=== PATIENT | male | born 1955 | race Caucasian/White ===

== ENCOUNTER 2018-05-07 06:29 | Emergency (ER) | payer BC ==
[2018-05-07] MEDS ORDERED: ONDANSETRON HCL/PF 4 MG/ 2ML VIAL IVP ONE (06:55)
--- NOTE | 2018-05-07 06:58 | ED Physician Documentation ---
Abdominal Pain - HISTORIAN Historian: patient, spouse - HPI Stated Complaint: " N/V LLQ PAIN SINCE 2199" Chief Complaint: Abdominal Pain Onset: hours (8) Duration: constant Timing: still present Context: denies: out of country travel Severity: moderate Quality: pain, sharp, stabbing Associated Symptoms: fever, nausea Exacerbated by: movements Relieved by: nothing - ROS GI/: denies: constipation CVS/RESP: denies: shortness of breath MS/SKIN/LYMPH: denies: swollen glands NEURO/PSYCH: denies: headache - SOCIAL HX Smoking History: non-smoker Alcohol Use: none Drug Use: none - FAMILY HX Family History: none - PAST HX Past History: none Ischemic Bowel Risk Factors: none Other History: diabetes Type 2 Surgeries/Procedures: none - REVIEWED ASSESSMENTS Nursing Assessment Reviewed: Yes Vitals Reviewed: Yes <Cassia Caceres - Last Filed: 05/07/18 06:56> - ROS CONST: recent illness <TANYA GRANADOS - Last Filed: 05/07/18 09:33> - HPI Additonal Information: Patient presents to ED with RLQ pain, fever (101.0) and nausea since 2199 last night. Patient states he had a similar episode last week which resolved without intervention. He rates his pain 7/10, sharp stabbing, radiating to his back. (Cassia Caceres) - PAST HX Home Medications: Ambulatory Orders Medication Instructions Recorded Glipizide 10 mg PO BID 05/07/18 Lisinopril [Prinivil] 10 mg PO DAILY 05/07/18 Metformin HCl [Metformin HCl ER] 1,000 mg PO BID 05/07/18 Allergies/Adverse Reactions: Allergies Allergy/AdvReac Type Severity Reaction Status Date / Time Sulfa (Sulfonamide Allergy Mild Verified 05/07/18 06:38 Antibiotics) - VITAL SIGNS Vital Signs: Vital Signs Temp Pulse Resp BP Pulse Ox 98.1 F 63 16 156/74 97 05/07/18 08:28 05/07/18 08:28 05/07/18 08:28 05/07/18 08:28 05/07/18 08:28 Progress <TANYA GRANADOS - Last Filed: 05/07/18 09:33> - Progress Progress: 0715 Patient re-examined. Right flank pain radiating "through to right lower abdomen" per patient. Right CVA tenderness. UA with 1+ edema. WBC normal; 1+ blood in urine. Will continue to CT without and with contrast. 09 CT reading complete - stone at right UVJ; patient continues to c/o discomfort. Will give toradol and additional IV fluid. Discharge home with pain medication and flomax. Strain urine and follow up with PCP. May need urology referral if stone cannot pass. (TANYA GRANADOS) ED Results Lab/Radiology <TANYA GRANADOS - Last Filed: 05/07/18 09:33> - Lab Results Lab Results: Lab Results 05/07/18 05/07/18 05/07/18 Unknown Unknown Unknown WBC 6.40 K/ul K/ul (4.00-12.00) RBC 4.99 M/ul M/ul (3.90-5.20) Hgb 14.9 g/dL g/dL (12.0-18.0) Hct 45.5 % % (37.0-53.0) MCV 91.0 fl fl (80.0-100.0) MCH 29.9 pg pg (28.0-34.0) MCHC 32.8 g/dL g/dL (30.0-36.0) RDW 12.7 % % (11.3-14.3) Plt Count 137 K/mm3 K/mm3 (130-400) Neut % (Auto) 80.1 % H % (39.0-79.0) Lymph % (Auto) 11.8 % L % (16.0-50.0) [place] % (Auto) 6.5 % % (0.0-11.0) Eos % (Auto) 1.3 % % (0.0-6.8) Baso % (Auto) 0.3 (0.0-1.5) Neut # (Auto) 5.2 # k/uL # k/uL (1.4-7.7) Lymph # (Auto) 0.8 # k/uL # k/uL (0.6-4.0) Willacy # (Auto) 0.4 # k/uL # k/uL (0.0-0.9) Eos # (Auto) 0.1 # k/uL # k/uL (0.0-0.6) Baso # (Auto) 0.0 # k/uL # k/uL (0.0-0.5) Sodium 137 mmol/L mmol/L (136-145) Potassium 4.3 mmol/L mmol/L (3.5-5.1) Chloride 105 mmol/L mmol/L (98-107) Carbon Dioxide 28 mmol/L mmol/L (22-30) BUN 22 mg/dL H mg/dL (9-20) Creatinine 1.10 mg/dL mg/dL (0.66-1.25) Estimated Creat Clear 108 Est GFR ( Amer) > 60 (60 - ) Est GFR (Non-Af Amer) > 60 (60 - ) Glucose 190 mg/dL H mg/dL (74-106) Calcium 9.0 mg/dL mg/dL (8.4-10.2) Total Bilirubin 0.6 mg/dL mg/dL (0.2-1.3) AST 29 U/L U/L (15-46) ALT 39 U/L U/L (13-69) Alkaline Phosphatase 62 U/L U/L (38-126) Total Protein 6.2 g/dL L g/dL (6.3-8.2) Albumin 3.0 g/dL L g/dL (3.5-5.0) Lipase 69 U/L U/L (23-300) - Radiology Radiology Impressions: Examination: CT Abdomen/pelvis History: Comparison exams: None available Technique: CT Abdomen/pelvis without IV protocol. Findings: Pre and postcontrast imaging obtained. 2 mm right mid calyceal calcification. No suspicious left-sided calcifications. Bilateral peripelvic cysts. At the right ureteropelvic junction is a 2.5 mm calcification. Mild dilation of the ureter and intrarenal collecting system proximally. Remainder of the right ureter without dilation or central calcification. No abnormal dilation or calcification involving the left ureter. Bladder partially decompressed. Few scattered pelvic phleboliths. Liver demonstrates diffuse low attenuation. No central lesion. Spleen, adrenals, pancreas and gallbladder are without gross irregularity given exam technique. No gallstone. Abdominal aorta without aneurysm or peripheral atherosclerotic disease. Cardiac silhouette is not enlarged. No pericardial effusion. Bowel unopacified limiting evaluation. No abnormal dilation. Stool within the large bowel limiting sensitivity. No mesenteric inflammatory changes or free fluid. Appendix is visualized and is without inflammatory changes. Umbilical hernia with fat involvement. Small hiatal hernia. Osseous structures appropriate for age. Lung bases demonstrate atelectasis without infiltrate. Hilar granuloma. No effusion. Impression: 2.5 mm right ureterolithiasis at the ureteropelvic junction with prominent/dilation of the ureter and intrarenal collecting system proximally - mild obstructive uropathy. Right nephrolithiasis. No acute upper abdominal organ inflammatory process. No abnormal bowel dilation or inflammation. Small hiatal hernia. No gallstone. No lung base consolidation or effusion. Electronically signed on May 07, 2018 9:21:07 AM SENIOR MECHANICAL TECHNICIAN by: (TANYA GRANADOS) - Orders Orders: ED Orders Category Date Time Status CT ABD & PELVIS W & W/O CON Stat Exams 05/07/18 Taken CBC/PLATELET/DIFF Routine Lab 05/07/18 Completed CMP Routine Lab 05/07/18 Completed LIPASE Stat Lab 05/07/18 Completed UA W/MICRO IF INDICATED Routine Lab 05/07/18 06:50 Ordered 0.9 % Sodium Chloride [Normal Saline] 1,000 ml Med 05/07/18 07:16 Discontinued IV .STK-MED 0.9 % Sodium Chloride [Normal Saline] 1,000 ml Med 05/07/18 07:15 Discontinued IV NOW 0.9 % Sodium Chloride [Normal Saline] 1,000 ml Med 05/07/18 09:27 Ordered IV NOW Ketorolac Tromethamine [Toradol] Med 05/07/18 09:27 Once 30 mg IVP NOW ONE Ondansetron HCl/Pf [Zofran 4 mg/2 ml] Med 05/07/18 06:55 Discontinued 4 mg IVP NOW ONE fentaNYL CITRATE/PF Med 05/07/18 08:08 Discontinued 50 mcg IVP NOW ONE Abdominal Pain Physical Exam - Physical Exam General Appearance: no acute distress, alert EENT: MAXINE NECK: supple RESPIRATORY: no resp distress, breath sounds normal CVS: reg rate & rhythm, heart sounds normal ABDOMEN: soft, tenderness (right lower quadrant) BACK: no CVA tenderness SKIN: warm/dry, normal color EXTREMITIES: non-tender, no edema NEURO: oriented X3, motor nml <Cassia Caceres - Last Filed: 05/07/18 06:56> - Physical Exam Vital Signs: Vital Signs Temp Pulse Resp BP Pulse Ox 98.1 F 63 16 156/74 97 05/07/18 08:28 05/07/18 08:28 05/07/18 08:28 05/07/18 08:28 05/07/18 08:28 Discharge <Cassia Cacerse - Last Filed: 05/07/18 06:56> Decision to Admit: NO Decision Time: 09:45 <TANYA GRANADOS - Last Filed: 05/07/18 09:33> Clincal Impression: Right kidney stone Referrals: Amanda Love FNP [Primary Care Provider] - 2 Days Additional Instructions: supervising deputy your prescription and start it TOMORROW and for the next 7 days. Increase your fluid intake to at least 64 oz of water a day Strain all urine. If the stone is passed, place it in a specimen cup and take it to your primary care physician for analysis. You may take tylenol or ibuprofen as needed for discomfort. Pain medication has been prescribed as well. Condition: Stable Disposition: 01 HOME, SELF-CARE
[2018-05-07] MEDS ORDERED: 0.9 % SODIUM CHLORIDE 1,000 ML IV ONE ×3 (07:15→09:27)
[2018-05-07 07:37] LABS: eGFR (Non-African) > 60
[2018-05-07 07:38] LABS: BASOPHILS % 0.3 (0.0-1.5); EOSINOPHILS % 1.3 % (0.0-6.8); MEAN CORPUSCULAR HEMOGLOBIN 29.9 pg (28.0-34.0); MONOCYTES % 6.5 % (0.0-11.0); NEUTROPHILS # 5.2 # k/uL (1.4-7.7)
[2018-05-07] MEDS ORDERED: fentaNYL CITRATE/PF 100 MCG/2 ML INJ. IVP ONE (08:08)
[2018-05-07] MEDS ORDERED: KETOROLAC TROMETHAMINE 30 MG/1ML VIAL IVP ONE (09:27)
[2018-05-07] MEDS ORDERED: TAMSULOSIN HCL 0.4 MG CAP.ER.24H PO ONE (09:34)
--- NOTE | 2018-05-07 10:12 | Diagnostic Imaging Report ---
TANYA GRANADOS (BOMB LOADER) - ER [facility] [address] [facility].[address] [address] Report Submission Date: May 07, 2018 9:21:07 AM INSURANCE VERIFICATION REPRESENTATIVE Patient Study Name: JOSI HERNANDEZ Date: May 07, 2018 8:30:12 AM INSURANCE VERIFICATION REPRESENTATIVE Modality Type: CT Gender: M Description: CT ABD PELVIS W/ CON : 57 Institution: [facility] Physician: TANYA GRANADOS (URVASHI) - ER Examination: CT Abdomen/pelvis History: Comparison exams: None available Technique: CT Abdomen/pelvis without IV protocol. Findings: Pre and postcontrast imaging obtained. 2 mm right mid calyceal calcification. No suspicious left-sided calcifications. Bilateral peripelvic cysts. At the right ureteropelvic junction is a 2.5 mm calcification. Mild dilation of the ureter and intrarenal collecting system proximally. Remainder of the right ureter without dilation or central calcification. No abnormal dilation or calcification involving the left ureter. Bladder partially decompressed. Few scattered pelvic phleboliths. Liver demonstrates diffuse low attenuation. No central lesion. Spleen, adrenals, pancreas and gallbladder are without gross irregularity given exam technique. No gallstone. Abdominal aorta without aneurysm or peripheral atherosclerotic disease. Cardiac silhouette is not enlarged. No pericardial effusion. Bowel unopacified limiting evaluation. No abnormal dilation. Stool within the large bowel limiting sensitivity. No mesenteric inflammatory changes or free fluid. Appendix is visualized and is without inflammatory changes. Umbilical hernia with fat involvement. Small hiatal hernia. Osseous structures appropriate for age. Lung bases demonstrate atelectasis without infiltrate. Hilar granuloma. No effusion. Impression: 2.5 mm right ureterolithiasis at the ureteropelvic junction with prominent/dilation of the ureter and intrarenal collecting system proximally - mild obstructive uropathy. Right nephrolithiasis. No acute upper abdominal organ inflammatory process. No abnormal bowel dilation or inflammation. Small hiatal hernia. No gallstone. No lung base consolidation or effusion. Electronically signed on May 07, 2018 9:21:07 AM INSURANCE VERIFICATION REPRESENTATIVE by: Nico CARRILLO
[2018-05-07 10:28] VITALS: BP 142/76
== END 2018-05-07 11:13 | disposition home or self-care (01) ==
LOC: ED 06:29
DX: N20.0 Calculus of kidney (principal)
CPT/HCPCS: 36415; 74178; 80053; 83690; 85025; 96374; 96375; 99283; 99285; J1885; J2405; J3010; J7030; Q9967; S1016

== ENCOUNTER 2019-02-13 13:44 | Outpatient (CLI) | payer BC ==
--- NOTE | 2019-02-13 16:16 | Diagnostic Imaging Report ---
PATIENT MR#: [id number] PATIENT PATIENT NAME: JOSI LOVE DATE OF : 1955 REFERRING PHYSICIAN: Amanda Love EXAM DATE: 02/13/2019 ACCESSION NUMBER: [id number] EXAM DESCRIPTION: TIBIA FIBULA 2 VIEW CLINICAL HISTORY: RT TIB/FIB, RED, SWOLLEN SORE ON MID LEG, FOR ABOUT A MONTH. COMPARISON: No study for comparison is available at the time of interpretation. TECHNIQUE: DX right tibia fibula, 2 views Osseous structures: The osseous structures are normal with no evidence of fracture or dislocation. Th ere is no osseous lesion or periosteal reaction. Joint spaces: The bones are well aligned. No articular surface abnormality is noted. Soft tissues: There is normal appearance of the soft tissues with no radiopaque foreign body seen. IMPRESSION: Normal right tibia and fibula radiographs. Read by: Dr. Justin Castellon Transcribed by: Justin Castellon Transcribed Date: 02/13/2019 4:15:30 PM Electronically signed by: Dr. Justin Castellon Date signed: 02/13/2019 4:16:02 PM
== END 2019-02-13 13:54 ==
LOC: RAD 13:44
PROVIDERS: ATTEND Nurse Practitioner Family
DX: M79.89 Other specified soft tissue disorders (principal)
CPT/HCPCS: 73590

== ENCOUNTER 2019-03-18 15:01 | Outpatient (CLI) | payer BC ==
--- NOTE | 2019-03-25 12:34 | OP Clinic Progress Note ---
DATE OF VISIT: 03/18/2019 SUBJECTIVE: Bryan is a 63-year-old male presenting to the clinic today for follow-up of a wound on his right leg that had mild purple discoloration around the edges. It was in the central anterior portion of his right lower leg. The patient has been doing well and had a 2-layer compression wrap that was applied the last time and he removed it once and reapplied it, and then removed it again yesterday stating that it was just too uncomfortable for him to wear. He also states today that he is willing to apply dressings at home more frequently so that we can put good enzymatic debridement type of material on them more often. The patient it seems like would prefer not to do the large compression wraps at this time. He states that he is doing well otherwise and does not admit to any fevers, chills, nausea, vomiting, shortness of breath or chest pain. OBJECTIVE: Vitals: Temperature 97.8 degrees Fahrenheit, heart rate 77, respiration rate 18, blood pressure 133/78. O2 saturation is 95% on room air. Vascular: 2+ DP and PT pulses, right foot. Capillary refill time is less than 3 seconds to the toes of the right foot. There is mild edema noted still, right lower extremity. Dermatologic: There is still an open punched-out lesion noted at the proximal lower right leg anteriorly just medial to the center line of the varela. There is still that mild purple discoloration medially around the edge of the wound that is faint. There is a significant amount of yellow fibrous tissue still present, approximately 50%, with some white fascial tissue with some granular base peeking through more than previous. Debridement was performed today and removed some of the yellow slough. There is still a significant amount left but is thick. There are no signs of erythema or warmth or drainage or purulence of any kind noted. There are no other skin abnormalities noted, right foot. The patients wound on the right anterior lower leg measured today at 1.0 x 1.3 x 0.3 cm deep and has a very small amount of undermining in a proximal medial direction, about 0.2 cm to 0.3 cm. Musculoskeletal: There is mild burning pain with debridement. There is no other pain on palpation noted otherwise. There are no other gross abnormalities noted, right lower extremity. Neurologic: Light touch sensation is intact to the toes, right foot. There is some diminished sensation with debridement of the right anterior lower leg ulcer but again there is still some light burning pain with debridement. ASSESSMENT AND PLAN: 1. Venous insufficiency ulcer of the right leg; I83.019, and L97.919. 2. Type 2 diabetes mellitus without complication, unspecified whether long term care phlebotomist insulin use; E11.9. 3. Venous insufficiency of the right lower extremity; I87.2. PROCEDURE #1: Sharp debridement less than 20 sq cm with a curette down to and including the subcutaneous tissue layer was performed today. The patient tolerated the procedure well. He had Emla cream applied before to let it numb up some first. Some yellow slough was removed but there is still some remaining. This was rinsed with normal saline and dried. Dressings consisting of Santyl, 4x4 gauze, Kerlix, and 3 layers of 4-inch ANA wrap were applied today. The patient was encouraged to do every other day dressing changes with the Santyl that he already has at home from previous. He will do this every other day and do the dressings just like we did today with Santyl, 4x4 gauze, Kerlix and then reapply the 4 layers of 3-inch ANA wrap beginning at the end of the foot and going up to the knee. The patient has no further questions or concerns and he will continue doing these dressing changes on his own. He will plan on seeing me in 2-1/2 weeks, but knows to come in sooner if there are any concerns, or to talk to his , Amanda, if there are any signs of infection or concerns. Otherwise, he can go to the emergency room while I am out of town. He knows I will not be here this coming Monday through the entire next week. The patient will return to the clinic in 2-1/2 weeks for follow-up. We will consider in the future that if we are not seeing improvement from depth as we get rid of some more of this fibrous tissue then we will consider a wound VAC to try and fill in the depth before we can get improvement from [id number] healing of the wound. He Narayan D.P.M. David Job#: [id number] MTDD
== END 2019-03-18 15:31 ==
LOC: POD 15:01
PROVIDERS: ATTEND Podiatrist Foot & Ankle Surgery
DX: I83.015 Varicose veins of right lower extremity with ulcer other part of foot (principal); E11.621 Type 2 diabetes mellitus with foot ulcer; L97.519 Non-pressure chronic ulcer of other part of right foot with unspecified severity
CPT/HCPCS: 11042; 99213; A4554

== ENCOUNTER 2019-04-03 14:42 | Outpatient (CLI) | payer BC ==
--- NOTE | 2019-04-05 17:19 | OP Clinic Progress Note ---
DATE OF VISIT: 04/03/2019 SUBJECTIVE: Bryan is a 63-year-old male presenting to the clinic today for follow-up of a venous insufficiency ulcer of the right lower extremity anterior lower leg. He is a diabetic patient with venous insufficiency. The patient has been using Santyl/collagenase and gauze and 3 layers of 4-inch ANA wrap on the wound site. He is concerned that it does not seem to be improving at all over the last 2 weeks since we last saw him. The patient believes his wound has been present for somewhere close to 2-1/2 to 3 months now. The patient has been trying actively to get this to heal with help of his nurse practitioner/, Amanda Love. The patient has been unsuccessful so far and began seeing me in February. The patient does not admit to any fevers, chills, nausea, vomiting, shortness of breath or chest pain. He does have diminished sensation in the lower legs. OBJECTIVE: Vitals: Temperature 98.0 degrees Fahrenheit, heart rate 68, respiration rate 18, blood pressure 130/76. O2 saturation is 97% on room air. Vascular: 2+ DP and PT pulses, right foot. Hair growth to the toes is present. There is an area of no growth in the distal lower leg and proximal foot. Capillary refill time is less than 3 seconds to the toes of the right foot. There is mild edema still noted, right lower extremity. Dermatologic: There is an open lesion still that is a punched-out type lesion with a slight purple discoloration of the skin on the edge. This still has undermining that goes proximal and medial approximately 0.4 cm in length undermining. The wound itself is measuring 1.4 x 0.9 x 0.3 cm deep. There is some yellow slough still present that was debrided with a curette as well as #15 blade and a pickup. A lot of that was debrided to normal fascia and granulation tissue. There is still only approximately 30% granulation tissue in the wound base. There is no erythema, malodor, purulence or any other signs of warmth or infection. The wound measurement today is approximately the same as last measurement which was 1.0 x 1.3 x 0.3 cm deep on 03/18/19. Musculoskeletal: There is mild burning pain still with debridement the patient says today. There is no other pain on palpation noted. There are no soft tissue abnormalities otherwise than the wound above. There is no fluctuance noted. Neurologic: Light touch sensation is intact to the toes but overall diminished with debridement of the right anterior lower leg ulcer today. The patient does admit some light burning pain with the debridement. ASSESSMENT AND PLAN: 1. Venous insufficiency ulcer of the right leg; I83.019 and L97.919. 2. Type 2 diabetes mellitus without complication, unspecified whether termite control service representative insulin use; E11.9. 3. Venous insufficiency of the right lower extremity; I87.2. PROCEDURE #1: Sharp debridement of the right lower leg ulcer was performed today with a #15 blade and pickup as well as a curette less than 20 sq cm down to and including subcutaneous tissue layer. The patient tolerated this well. He had EMLA cream applied prior to allow it to numb some just in case, and then much of the yellow slough was removed. This looks much better but there is still only about 30% of granulation tissue. This was rinsed with normal saline in a copious amount and dried. Dressings were applied consisting of Santyl, 4x4 gauze, Kerlix and 3 layers of a 4-inch ANA wrap today. The patient is to continue doing daily dressing changes as above. He has collagenase at home that he will continue using. The patient seems to be still stalled no matter the good enzymatic debridement efforts that we have been giving as well as compression. He seems to have great blood flow as well as no signs of infection and no pressure problems and therefore should be improving. His diabetic status is likely contributing to a slower healing process. I believe that the patient is a great candidate for advanced biologic graft application as well as negative pressure wound therapy. The patient has given verbal consent and written consent to go forward with discussing with these companies and representatives the possibility of using products from them to help with wound healing. I believe that the patient will need this for sure and I believe that this will help him in advanced healing and quicker healing time. I am worried that the patient is stalling healing despite our efforts so far. We will continue local wound care as per previous plan and will hopefully be applying a graft by [employer] and/or a wound VAC from [facility] next week on Monday. Return to the clinic in 1 week on Monday, and we will hopefully begin graft application and/or VAC placement. The patient understands that he will leave these dressings alone. At this time he is to continue changing the dressings daily. He understands after discussion today that we are looking at probably 2 or 3 months of working on this wound to try and get it to heal as it is obviously very slow. The patient is frustrated but understanding that his diabetes is slowing the healing potential. We will also further question the patient regarding his blood sugar control and his A1C to make sure that he is working on that to best give him good healing potential. He Narayan D.P.M. David Job#: [id number] MTDD
== END 2019-04-03 15:12 ==
LOC: POD 14:42
PROVIDERS: ATTEND Podiatrist Foot & Ankle Surgery
DX: I83.019 Varicose veins of right lower extremity with ulcer of unspecified site (principal); E11.621 Type 2 diabetes mellitus with foot ulcer; L97.919 Non-pressure chronic ulcer of unspecified part of right lower leg with unspecified severity
CPT/HCPCS: 11042; 99213; A4554